=== PATIENT | female | born 1950 | race Caucasian/White ===

== ENCOUNTER 2018-01-12 06:05 | Day surgery (SDC) | payer OTHER ==
[~2018-01-12 06:05] MED LIST: MEFORMIN PO; TOPROL XL25 M1 PO; ULTRACET PO
== END 2018-01-12 10:45 | disposition home or self-care (01) ==
LOC: AMB-ENDOS 06:05
DX: K57.30 Diverticulosis of large intestine without perforation or abscess without bleeding (principal); K64.0 First degree hemorrhoids; Z85.038 Personal history of other malignant neoplasm of large intestine; Z08 Encounter for follow-up examination after completed treatment for malignant neoplasm